=== PATIENT | female | born 1960 | race Caucasian/White ===

== ENCOUNTER 2017-12-25 10:54 | Emergency (ER) | payer MEDICARE ==
[2015-12-20 12:49] VITALS: BMI 23.9
[~2017-12-25 10:54] MED LIST: BUTALB-APAP-CA1 EACH PO; DEPAKOTE250 MG PO; DIOVAN HCT 320/1 TA2 PO; HYDROCODONE-APA1 TAB PO; LAMICTAL100 MG PO; LEVAQUIN500 MG PO; LIPITOR10 MG PO; NICODERM C1 PATCH .2 TRANSDERM; PREDNISONE20 MG PO; PROZAC20 MG PO; REGLAN5 MG PO; STERAPRED DS 1210 MG PO; TENORMIN100 MG PO; VENTOLIN HFA18 GM INH; ZITHROMAX500 MG PO
[2017-12-25 11:44] LABS: BASOPHILS 0.5 % (0-2); EOSINOPHILS 0.7 % (0-7); HEMATOCRIT 40.7 % (36.0-48.0); HEMOGLOBIN 13.9 g/dL (12-16); IMMATURE GRANULOCYTES 0.2 % (0-5); LYMPHOCYTES 17.4 % (15-50); MCH 31.3 pg (26.0-34.0); MCHC 34.2 g/dL (31.0-37.0); MCV 91.7 fL (80.0-100.0); MEAN PLATELET VOLUME 10.8 fL (7.4-10.4); MONOCYTES 6.8 % (2-11); NEUTROPHILS 74.4 % (40-80); RBC 4.44 10x6/uL (4.00-5.40); RDW 14.6 % (11.5-14.5); WBC 8.5 10x3/uL (4.8-10.8)
[2017-12-25 11:46] LABS: PLATELET COUNT 287 10x3/uL (130-400)
[2017-12-25 11:54] LABS: APPEARANCE HAZY (CLEAR); BILIRUBIN NEGATIVE (NEGATIVE); COLOR YELLOW (YELLOW); GLUCOSE NEGATIVE (NEGATIVE); KETONE NEGATIVE (NEGATIVE); NITRITE NEGATIVE (NEGATIVE); PH 8.5 (5.0-6.0); PROTEIN NEGATIVE (NEGATIVE); SPECIFIC GRAVITY 1.005 (1.005-1.020); UROBILINOGEN NORMAL (NORMAL)
[2017-12-25 12:17] LABS: ALBUMIN 3.2 g/dL (3.4-5.0); ALKALINE PHOSPHATASE 84 U/L (46-116); ALT (SGPT) 54 U/L (10-68); BILIRUBIN - TOTAL 0.48 mg/dL (0.2-1.3); CALC OSMOLALITY 259 mosm/kg (275-300); CALCIUM 8.6 mg/dL (8.5-10.1); CHLORIDE - SERUM 97 mmol/L (98-107); CREATININE - SERUM 0.8 mg/dL (0.6-1.3); GLUCOSE 109 mg/dL (74-106); POTASSIUM - SERUM 3.3 mmol/L (3.5-5.1); PROTEIN - SERUM 6.5 g/dL (6.4-8.2); SODIUM 130 mmol/L (136-145); UREA NITROGEN 7 mg/dL (7-18); eGFR NON AFRICAN AMERICAN 78 mL/min (90-120)
[2017-12-25 12:24] LABS: CREATINE KINASE 14 UL (21-215); LIPASE 272 U/L (73-393); MAGNESIUM - SERUM 1.6 mg/dL (1.8-2.4); PRO BNP 734 pg/mL (0-125); TROPONIN-I < 0.017 ng/mL (0.000-0.060)
== END 2017-12-25 13:59 | disposition home or self-care (01) ==
LOC: D.ER 10:54
PROVIDERS: Family Medicine
DX: R11.10 Vomiting, unspecified (principal); R07.89 Other chest pain

== ENCOUNTER 2017-12-29 12:09 | Emergency (ER) | payer MEDICARE ==
[2015-12-20 12:49] VITALS: BMI 23.9
[2017-12-29 12:42] LABS: BASOPHILS 0.9 % (0-2); EOSINOPHILS 0.8 % (0-7); HEMATOCRIT 38.8 % (36.0-48.0); HEMOGLOBIN 13.1 g/dL (12-16); IMMATURE GRANULOCYTES 0.2 % (0-5); LYMPHOCYTES 19.6 % (15-50); MCH 31.4 pg (26.0-34.0); MCHC 33.8 g/dL (31.0-37.0); MONOCYTES 6.2 % (2-11); NEUTROPHILS 72.3 % (40-80); RBC 4.17 10x6/uL (4.00-5.40); WBC 6.4 10x3/uL (4.8-10.8)
[2017-12-29 12:49] LABS: PLATELET COUNT 187 10x3/uL (130-400)
[2017-12-29 12:53] LABS: ALBUMIN 3.2 g/dL (3.4-5.0); ALKALINE PHOSPHATASE 86 U/L (46-116); ALT (SGPT) 30 U/L (10-68); BILIRUBIN - TOTAL 0.32 mg/dL (0.2-1.3); CALC OSMOLALITY 265 mosm/kg (275-300); CALCIUM 8.4 mg/dL (8.5-10.1); CARBON DIOXIDE 23.7 mmol/L (21.0-32.0); CHLORIDE - SERUM 101 mmol/L (98-107); CREATININE - SERUM 0.7 mg/dL (0.6-1.3); GLUCOSE 101 mg/dL (74-106); POTASSIUM - SERUM 3.9 mmol/L (3.5-5.1); PROTEIN - SERUM 6.5 g/dL (6.4-8.2); SODIUM 134 mmol/L (136-145); UREA NITROGEN 6 mg/dL (7-18); eGFR NON AFRICAN AMERICAN > 90 mL/min (90-120)
[2017-12-29 13:18] LABS: APPEARANCE HAZY (CLEAR); BACTERIA MANY /hpf (NONE SEEN); BILIRUBIN NEGATIVE (NEGATIVE); COLOR STRAW (YELLOW); EPITHELIAL CELLS 0-5 /hpf (0-5); GLUCOSE NEGATIVE (NEGATIVE); KETONE NEGATIVE (NEGATIVE); NITRITE POSITIVE (NEGATIVE); PROTEIN NEGATIVE (NEGATIVE); RED CELLS - URINE NONE SEEN /hpf (0-5); UROBILINOGEN NORMAL (NORMAL); WHITE CELLS - URINE 0-5 /hpf (0-5)
== END 2017-12-29 14:04 | disposition home or self-care (01) ==
LOC: D.ER 12:09
PROVIDERS: Emergency Medicine
DX: F17.200 Nicotine dependence, unspecified, uncomplicated (principal)

== ENCOUNTER 2018-06-12 00:08 | Inpatient (IN) | payer MEDICARE ==
[~2018-06-12] VITALS: Ht 160 cm; Wt 61.4 kg
[2018-06-12 00:59] LABS: BASOPHILS 0.4 % (0-2); EOSINOPHILS 0.7 % (0-7); HEMATOCRIT 38.7 % (36.0-48.0); HEMOGLOBIN 12.7 g/dL (12-16); IMMATURE GRANULOCYTES 0.3 % (0-5); LYMPHOCYTES 13.6 % (15-50); MCH 30.6 pg (26.0-34.0); MCHC 32.8 g/dL (31.0-37.0); MCV 93.3 fL (80.0-100.0); MEAN PLATELET VOLUME 9.9 fL (7.4-10.4); MONOCYTES 5.7 % (2-11); NEUTROPHILS 79.3 % (40-80); RBC 4.15 10x6/uL (4.00-5.40); RDW 14.7 % (11.5-14.5); WBC 11.2 10x3/uL (4.8-10.8)
[2018-06-12 01:08] LABS: PLATELET COUNT 139 10x3/uL (130-400)
[2018-06-12 01:18] LABS: ALBUMIN 3.6 g/dL (3.4-5.0); ANION GAP 13.7 mmol/L (8-16); BILIRUBIN - TOTAL 0.19 mg/dL (0.2-1.3); CALCIUM 8.2 mg/dL (8.5-10.1); CARBON DIOXIDE 23.9 mmol/L (21.0-32.0); CREATININE - SERUM 1.2 mg/dL (0.6-1.3); POTASSIUM - SERUM 3.6 mmol/L (3.5-5.1); PROTEIN - SERUM 6.9 g/dL (6.4-8.2)
[2018-06-12 03:19] VITALS: BP 125/65
[2018-06-12 04:14] LABS: HELICOBACTER PYLORI IGG NEGATIVE (NEGATIVE)
[2018-06-12] MEDS ORDERED: PROZAC20 MG PO (05:23)
[2018-06-12] MEDS ORDERED: ACETAMINOPHEN500 M1 PO (05:25)
[2018-06-12 06:30] VITALS: BP 139/77; Ht 160 cm; Wt 61.4 kg
[2018-06-12 10:22] VITALS: BP 98/60
[2018-06-12 12:56] LABS: CKMB 0.5 U/L (0.0-3.6); CREATINE KINASE 50 UL (21-215)
[2018-06-12 13:02] LABS: TROPONIN-I < 0.017 ng/mL (0.000-0.060)
[2018-06-12 19:35] LABS: CKMB 0.3 U/L (0.0-3.6); CREATINE KINASE 56 UL (21-215)
[2018-06-12 19:49] LABS: TROPONIN-I < 0.017 ng/mL (0.000-0.060)
[2018-06-12 20:33] VITALS: BP 118/77
[2018-06-13 01:11] LABS: CKMB 0.6 U/L (0.0-3.6); CREATINE KINASE 56 UL (21-215); TROPONIN-I < 0.017 ng/mL (0.000-0.060)
[2018-06-13 04:41] LABS: EOSINOPHILS 1.9 % (0-7); HEMATOCRIT 33.6 % (36.0-48.0); HEMOGLOBIN 10.8 g/dL (12-16); IMMATURE GRANULOCYTES 0.2 % (0-5); LYMPHOCYTES 31.9 % (15-50); MCH 30.3 pg (26.0-34.0); MCHC 32.1 g/dL (31.0-37.0); MCV 94.1 fL (80.0-100.0); MEAN PLATELET VOLUME 9.8 fL (7.4-10.4); MONOCYTES 11.3 % (2-11); NEUTROPHILS 53.7 % (40-80); PLATELET COUNT 115 10x3/uL (130-400); RBC 3.57 10x6/uL (4.00-5.40); RDW 14.7 % (11.5-14.5)
[2018-06-13 04:43] LABS: WBC 4.2 10x3/uL (4.8-10.8)
[2018-06-13 04:55] LABS: ANION GAP 13.7 mmol/L (8-16); CREATININE - SERUM 0.9 mg/dL (0.6-1.3); POTASSIUM - SERUM 3.7 mmol/L (3.5-5.1)
[2018-06-13 08:27] VITALS: BP 179/87
[2018-06-13 18:34] VITALS: BP 126/72
[2018-06-13 20:00] VITALS: BP 101/59
[2018-06-14 04:52] VITALS: BP 139/87
[2018-06-14 05:08] LABS: BASOPHILS 1.1 % (0-2); EOSINOPHILS 1.3 % (0-7); HEMATOCRIT 33.9 % (36.0-48.0); HEMOGLOBIN 10.8 g/dL (12-16); IMMATURE GRANULOCYTES 0.2 % (0-5); LYMPHOCYTES 32.3 % (15-50); MCH 30.3 pg (26.0-34.0); MCHC 31.9 g/dL (31.0-37.0); MEAN PLATELET VOLUME 10.4 fL (7.4-10.4); MONOCYTES 9.4 % (2-11); NEUTROPHILS 55.7 % (40-80); PLATELET COUNT 119 10x3/uL (130-400); RBC 3.57 10x6/uL (4.00-5.40); RDW 14.6 % (11.5-14.5); WBC 4.7 10x3/uL (4.8-10.8)
[2018-06-14 05:22] LABS: ANION GAP 9.8 mmol/L (8-16); BILIRUBIN - TOTAL 0.38 mg/dL (0.2-1.3); CALCIUM 7.6 mg/dL (8.5-10.1); CARBON DIOXIDE 27.6 mmol/L (21.0-32.0); CREATININE - SERUM 0.9 mg/dL (0.6-1.3); POTASSIUM - SERUM 3.4 mmol/L (3.5-5.1); PROTEIN - SERUM 5.9 g/dL (6.4-8.2)
[2018-06-14 09:18] VITALS: BP 135/82
[2018-06-14 12:28] VITALS: BP 117/72
[2018-06-14] MEDS ORDERED: CARAFATE1 G/10 ML PO (13:13)
[2018-06-14] MEDS ORDERED: NICODERM C1 PATCH .3 TRANSDERM (13:13)
[2018-06-14] MEDS ORDERED: PROTONIX40 MG PO (13:14)
[2018-06-14] MEDS ORDERED: NYSTATIN ORAL SU5 ML PO (13:15)
[2018-06-14 16:14] VITALS: BP 128/67
== END 2018-06-14 18:28 | disposition home or self-care (01) | DRG 369 ==
LOC: D.ER 00:08 → D.MS 04:00 → OBSVTIME 04:00 → D.MS 04:00 → D.SDCHOLD 06-13 15:49 → D.MS 06-13 15:50
PROVIDERS: Family Medicine; Internal Medicine Gastroenterology; Internal Medicine Nephrology
PROC: 0DB68ZX Excision of Stomach, Via Natural or Artificial Opening Endoscopic, Diagnostic (ICD-10-PCS; 2018-06-13)
PROC: 0DB58ZX Excision of Esophagus, Via Natural or Artificial Opening Endoscopic, Diagnostic (ICD-10-PCS; 2018-06-13)
PROC: 0DB98ZX Excision of Duodenum, Via Natural or Artificial Opening Endoscopic, Diagnostic (ICD-10-PCS; principal; 2018-06-13 09:21)
DX: B37.81 Candidal esophagitis (principal); K22.10 Ulcer of esophagus without bleeding; F17.213 Nicotine dependence, cigarettes, with withdrawal; K21.0 Gastro-esophageal reflux disease with esophagitis; K44.9 Diaphragmatic hernia without obstruction or gangrene; K25.9 Gastric ulcer, unspecified as acute or chronic, without hemorrhage or perforation; K29.70 Gastritis, unspecified, without bleeding; I10 Essential (primary) hypertension; J44.9 Chronic obstructive pulmonary disease, unspecified; Z86.73 Personal history of transient ischemic attack (TIA), and cerebral infarction without residual deficits